=== PATIENT | male | born 1975 | race Two or more races ===

== ENCOUNTER 2023-12-23 18:56 | Emergency (ER) | payer BC ==
[~2023-12-23] VITALS: Ht 193 cm; Wt 145.1 kg
[2023-12-23 19:05] VITALS: TEMP 97.9
[2023-12-23] MEDS ORDERED: GABA-532 PO (21:29)
[2023-12-23 21:40] VITALS: BP 135/87; O2SAT 99
== END 2023-12-23 21:40 | disposition home or self-care (01) ==
LOC: ER 19:03
DX: M54.41 Lumbago with sciatica, right side (principal)
CPT/HCPCS: 72131-TC